=== PATIENT | female | born 1945 | race Hispanic/Latino ===

== ENCOUNTER 2019-03-15 12:20 | Emergency (ER) | payer MEDICARE ==
[~2019-03-15] VITALS: Ht 152.4 cm; Wt 60.8 kg
--- NOTE | 2019-03-15 13:41 | NUR ---
PT ASST TO WC TO CAR AND INTO CAR BY NURSE.
== END 2019-03-15 13:41 | disposition home or self-care (01) ==
LOC: ER 12:20
DX: R53.1 Weakness (principal); Z88.6 Allergy status to analgesic agent; Z88.1 Allergy status to other antibiotic agents; Z88.5 Allergy status to narcotic agent; Z88.2 Allergy status to sulfonamides; Z88.8 Allergy status to other drugs, medicaments and biological substances; I10 Essential (primary) hypertension; E11.9 Type 2 diabetes mellitus without complications; Z86.73 Personal history of transient ischemic attack (TIA), and cerebral infarction without residual deficits
CPT/HCPCS: 99284

== ENCOUNTER 2019-05-05 07:54 | Inpatient (IN) | payer MEDICARE ==
[~2019-05-05] VITALS: Ht 152.4 cm; Wt 40.8 kg
--- NOTE | 2019-05-05 09:23 | Diagnostic Imaging Report ---
Examination: CT head without contrast Clinical Indication: Fall with head injury. Technique: Transaxial noncontrast images from the skull base through the vertex were obtained. Sagittal and coronal reformatted images were done. Dose modulation, iterative reconstruction, and/or weight based adjustment of the mA/kV was utilized to reduce the radiation dose to as low as reasonably achievable. Comparison: None. Findings: Scalp: No abnormalities. Bones: Intact. No fractures. No blastic or lytic lesions. Brain sulci: Appropriate for patient's age. Ventricles: Normal in size and configuration. No hydrocephalus. . Extra-axial space: No abnormalities. Parenchyma: There are patchy areas of low-attenuation within subcortical and periventricular white matter, nonspecific, but could represent microvascular ischemic disease. Chronic lacunar infarcts of the right caudate head and left anterior stephane. No masses, hemorrhage, or acute or chronic cortical based vascular insults. Suprasellar region: No abnormalities. Craniocervical junction: The foramen magnum is patent. No Chiari one malformation. Incidental findings: Atherosclerotic calcification of the cavernous and supraclinoid internal carotid and V4 segments of the bilateral vertebral arteries. Impression: 1. No acute intracranial finding, specifically no hemorrhage. 2. Chronic microvascular ischemic change. 3. Chronic lacunar infarcts, as above. Signed by: Dr. Verona Kennedy M.D. on 05/05/2019 9:19 AM
[2019-05-05] MEDS ORDERED: ACETAMINOPHEN 325 MG TAB PO ONE (09:30)
--- NOTE | 2019-05-05 09:30 | Diagnostic Imaging Report ---
Examination: CT CERVICAL SPINE WO CONTRAST HISTORY:Neck pain and injury after fall. COMPARISON:None. TECHNIQUE: Multidetector helical axial images were obtained without contrast from the foramen magnum to T1. Coronal and sagittal reformatted images were done. Bone and soft tissue windows were evaluated. Dose modulation, iterative reconstruction, and/or weight based adjustment of the mA/kV was utilized to reduce the radiation dose to as low as reasonably achievable. FINDINGS: Alignment:Normal alignment and lordosis. Vertebrae: Normal height and density. No acute fracture, infection or neoplasm. Caliber of spinal canal: Developmentally normal. Posterior fossa and craniocervical junction: Foramen magnum patent. No Chiari 1 malformation. Soft tissues: Atherosclerotic calcification of the carotid arteries. Degenerative changes: Diffuse disc osteophytes from C4-C5 through C6-C7 with mild to moderate canal stenosis at these levels. Visualized lung apices: Moderate to large left pleural effusion. IMPRESSION: 1. No acute abnormalities. 2. Degenerative changes as above. 3. Moderate to large left pleural effusion. Signed by: Dr. Verona Kennedy M.D. on 05/05/2019 9:26 AM
--- NOTE | 2019-05-05 10:03 | Diagnostic Imaging Report ---
EXAM: CT Chest WITHOUT contrast 05/05/2019 8:14 AM INDICATION: Chest pain status post fall. Mid right rib/back pain. COMPARISON: None TECHNIQUE: Chest was scanned utilizing a multidetector helical scanner from the lung apex through the level of the adrenal glands without administration of IV contrast. Absence of intravenous contrast decreases sensitivity for detection of lymphadenopathy and vascular pathology. Coronal and sagittal reformations were obtained. Routine protocol was performed. IV CONTRAST: None RADIATION DOSE: Total DLP: 163.34 mGy*cm Estimated effective dose: (DLP x 0.014 x size factor) mSv COMPLICATIONS: None FINDINGS: LINES/ TUBES: None. Pacemaker leads partially visualized. LUNGS AND AIRWAYS: Bilateral prominence of the pulmonary interstitium diffusely. Regions of hypodensity in the right upper lobe and lingula suggestive of platelike atelectasis. There is also linear atelectasis versus scarring in the right middle lobe. Left lower lobe compressive atelectasis. PLEURA: Moderate to large left, and small right pleural effusions. HEART AND MEDIASTINUM: The thyroid gland is normal. No mediastinal, hilar or axillary lymphadenopathy. The heart is moderately enlarged.. There is no pericardial effusion. There are severe atherosclerotic calcifications in the aorta and coronary arteries. The pulmonary trunk is dilated measuring 3.2 cm in diameter. UPPER ABDOMEN: Limited non-contrast views of the upper abdomen show no abnormality within the visualized liver, spleen, pancreas, or kidneys. The adrenal glands are normal. BONES: There are degenerative changes in the thoracic spine. Median sternotomy wires. SOFT TISSUES: Unremarkable. IMPRESSION: 1. No acute traumatic injury. No displaced rib fracture. 2. Small right and moderate to large volume left pleural effusions associated with left lower lobe compressive atelectasis. 3. Bilateral pulmonary venous congestion and interstitial edema. 4. Severe coronary artery disease. Signed by: Dr. Simi Hummel M.D. on 05/05/2019 10:00 AM
[2019-05-05 10:56] LABS: BASOPHILS # (AUTO) 0.1 (0.0-0.1); BASOPHILS % 0.6 % (0.0-1.0); EOSINOPHILS # (AUTO) 0.1 (0.0-0.4); EOSINOPHILS % 0.8 % (0.0-6.0); HEMATOCRIT 39.8 % (34.2-44.1); HEMOGLOBIN 12.8 g/dL (12.0-16.0); LYMPHOCYTES # (AUTO) 1.4 (1.0-3.2); MEAN CORPUSCULAR HEMOGLOBIN 28.6 pg (28-32); MEAN CORPUSCULAR HGB CONC 32.2 g/dL (31-35); MEAN CORPUSCULAR VOLUME 88.8 fL (81-99); MONOCYTES # (AUTO) 0.5 (0.2-0.8); MONOCYTES % 5.5 % (4.4-11.3); NEUTROPHILS # (AUTO) 6.4 (2.1-6.9); NEUTROPHILS % 75.5 % (38.7-80.0); PLATELET COUNT 220 x10e3/uL (140-360); RED BLOOD COUNT 4.48 x10e6/uL (3.6-5.1); RED CELL DISTRIBUTION WIDTH 20.2 % (11.7-14.4)
[2019-05-05] MEDS ORDERED: DEXTROSE 50% SYRINGE 50 ML IV PRN (11:00)
[2019-05-05 11:02] LABS: CLARITY,URINE CLEAR (CLEAR); COLOR,URINE YELLOW (YELLOW)
[2019-05-05 11:03] LABS: BILIRUBIN,URINE NEGATIVE (NEGATIVE); KETONES,URINE NEGATIVE (NEGATIVE); LEUKOCYTE ESTERASE ,URINE NEGATIVE (NEGATIVE); NITRITE,URINE NEGATIVE (NEGATIVE); PROTEIN,URINE DIPSTICK TRACE (NEGATIVE); URINE UROBILINOGEN 0.2 mg/dL (0.2 - 1)
[2019-05-05 11:05] LABS: INR 1.81; PROTHROMBIN TIME 22.3 seconds (11.9-14.5)
[2019-05-05 11:06] LABS: PARTIAL THROMBOPLASTIN TIME 49.5 seconds (23.8-35.5)
[2019-05-05 11:09] LABS: BACTERIA,URINE RARE /HPF; EPITHELIAL CELLS,URINE FEW /LPF
--- OUTSIDE RECORDS SUMMARY | 2019-05-05 11:09 | XMS REPORT ---
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 Allergies, Adverse Reactions, Alerts This patient has no known allergies or adverse reactions. Medications This patient has no known medications. Results Test Description Test Time Test Comments Text Results Atomic Results Result Comments CT CHEST WO 2019-05-05 09:26:00 [place] [address] Patient Name: ELMO ROBB MR #: [id number] : 1945 Age/Sex: 73/F Req #: [id number] Adm Physician: Ordered by: PAYAM FARRAR MD Report #: [id number] Location: ER Room/Bed: Procedure: [id number] CT/CT CHEST WO Exam Date: 05/05/19 Exam Time: 0844 REPORT STATUS: Signed EXAM: CT Chest WITHOUT contrast 05/05/2019 8:14 AM INDICATION : Chest pain status post fall. Mid right rib/back pain. COMPARISON: None TECHNIQUE: Chest was scanned utilizing a multidetector helical scanner from the lung apex through the level of the adrenal glands without administration of IV contrast. Absence of intravenous contrast decreases sensitivity for detection of lymphadenopathy and vascular pathology. Coronal and sagittal reformations were obtained. Routine protocol was performed. IV CONTRAST: None RADIATION DOSE: Total DLP: 163.34 mGy*cm Estimated effective dose: (DLP x 0.014 x size factor) mSv COMPLICATIONS: None FINDINGS: LINES/ TUBES: None. Pacemaker leads partially visualized. LUNGS AND AIRWAYS: Bilateral prominence of the pulmonary interstitium diffusely. Regions of hypodensity in the right upper lobe and lingula suggestive of platelike atelectasis. There is also linear atelectasis versus scarring in the right middle lobe. Left lower lobe compressive atelectasis. PLEURA: Moderate to large left, and small right pleural effusions. HEART AND MEDIASTINUM: The thyroid gland is normal. No mediastinal, hilar or axillary lymphadenopathy. The heart is moderately enlarged.. There is no pericardial effusion. There are severe atherosclerotic calcifications in the aorta and coronary arteries. The pulmonary trunk is dilated measuring 3.2 cm in diameter. UPPER ABDOMEN: Limited non-contrast views of the upper abdomen show no abnormality within the visualized liver, spleen, pancreas, or kidneys. The adrenal glands are normal. BONES: There are degenerative changes in the thoracic spine. Median sternotomy wires. SOFT TISSUES: Unremarkable. IMPRESSION: 1. No acute traumatic injury. No displaced rib fracture. 2. Small right and moderate to large volume left pleural effusions associated with left lower lobe compressive atelectasis. 3. Bilateral pulmonary venous congestion and interstitial edema. 4. Severe coronary artery disease. Signed by: Dr. Simi Cunningham M.D. on 05/05/2019 10:00 AM Dictated By: ARNALDO CUNNINGHAM MD, MD 1000 Transcribed By: REDD on 05/05/19 1000 COPY TO: PAYAM FARRAR MD CT CERVICAL SPINE WO 2019-05-05 09:19:00 [place] [address] Patient Name: ELMO ROBB MR #: [id number] : 1945 Age/Sex: 73/F Req #: [id number] Adm Physician: Ordered by: PAYAM FARRAR MD Report #: [id number] Location: ER Room/Bed: Procedure: [id number] CT/CT CERVICAL SPINE WO Exam Date: 05/05/19 Exam Time: 08 REPORT STATUS: Signed Examination: CT CERVICAL SPINE WO CONTRAST HISTO RY:Neck pain and injury after fall. COMPARISON:None. TECHNIQUE: Multidetector helical axial images were obtained without contrast from the foramen magnum to T1. Coronal and sagittal reformatted images were done. Bone and soft tissue windows were evaluated. Dose modulation, iterative reconstruction, and/or weight based adjustment of the mA/kV was utilized to reduce the radiation dose to as low as reasonably achievable. FINDINGS: Alignment:Normal alignment and lordosis. Vertebrae: Normal height and density. No acute fracture, infection or neoplasm. Caliber of spinal canal: Developmentally normal. Posterior fossa and craniocervical junction: Foramen magnum patent. No Chiari 1 malformation. Soft tissues: Atherosclerotic calcification of the carotid arteries. Degenerative changes: Diffuse disc osteophytes from C4-C5 through C6-C7 with mild to moderate canal stenosis at these levels. Visualized lung apices: Moderate to large left pleural effusion. IMPRESSION: 1. No acute abnormalities. 2. Degenerative changes as above. 3. Moderate to large left pleural effusion. Signed by: Dr. Verona Kennedy M.D. on 05/05/2019 9:26 AM Dictated By: VERONA DIETZ MD 5 Transcribed By: REDD on 05/05/19925 COPY TO: PAYAM FARRAR MD CT BRAIN WO 2019-05-05 09:14:00 [place] [address] Patient Name: ELMO ROBB MR #: [id number] : 1945 Age/Sex: 73/F Req #: [id number] [facility] Physician: Ordered by: PAYAM FARRAR MD Report #: [id number] Location: Room/Bed: Procedure: [id number] CT/CT BRAIN WO Exam Date: 05/05/19 Exam Time: 0844 REPORT STATUS: Signed Examination: CT head without contrast Clinical Indication: F all with head injury. Technique: Transaxial noncontrast images from the skull base through the vertex were obtained. Sagittal and coronal reformatted images were done. Dose modulation, iterative reconstruction, and/or weight based adjustment of the mA/kV was utilized to reduce the radiation dose to as low as reasonably achievable. Comparison: None. Findings: Scalp: No abnormalities. Bones: Intact. No fractures. No blastic or lytic lesions. Brain sulci: Appropriate for patient's age. Ventricles: Normal in size and configuration. No hydrocephalus. . Extra-axial space: No abnormalities. Parenchyma: There are patchy areas of low-attenuation within subcortical and periventricular white matter, nonspecific, but could represent microvascular ischemic disease. Chronic lacunar infarcts of the right caudate head and left anterior stephane. No masses, hemorrhage, or acute or chronic cortical based vascular insults. Suprasellar region: No abnormal ities. Craniocervical junction: The foramen magnum is patent. No Chiari one malformation. Incidental findings: Atherosclerotic calcification of the cavernous and supraclinoid internal carotid and V4 segments of the bilateral vertebral arteries. Impression: 1. No acute intracranial finding, specifically no hemorrhage. 2. Chronic microvascular ischemic change. 3. Chronic lacunar infarcts, as above. Signed by: Dr. Verona Kennedy M.D. on 05/05/2019 9:19 AM Dictated By: VERONA DIETZ MD 8 Transcribed By: REDD on 05/05/1919 COPY TO: PAYAM FARRAR MD
[2019-05-05] MEDS ORDERED: POTASSIUM CHLO10 ME1 PO (11:11)
[2019-05-05] MEDS ORDERED: MEXILETINE HCL150 MG PO (11:11)
[2019-05-05] MEDS ORDERED: ASPIR 8181 MG PEG (11:11)
[2019-05-05] MEDS ORDERED: ELIQUIS2.5 MG PO (11:11)
[2019-05-05] MEDS ORDERED: ONDANSETRON ODT8 MG PO (11:11)
[2019-05-05] MEDS ORDERED: LEVOTHYROXINE50 MCG PO (11:11)
[2019-05-05] MEDS ORDERED: BUMETANIDE1 MG PO (11:11)
[2019-05-05] MEDS ORDERED: TOUJEO SOL300 UNIT/1 SQ (11:11)
[2019-05-05] MEDS ORDERED: DIGOXIN125 MCG PO (11:11)
[2019-05-05] MEDS ORDERED: GLIPIZIDE5 MG PO (11:11)
[2019-05-05] MEDS ORDERED: ATORVASTATIN CA20 MG PO (11:11)
[2019-05-05 11:13] LABS: ALBUMIN/GLOBULIN RATIO 0.7 (0.8-2.0); ANION GAP 13.1 mmol/L (8-16); CREATININE, SERUM 1.29 mg/dL (0.57-1.11); MAGNESIUM 1.4 MG/DL (1.3-2.1); POTASSIUM 4.1 mmol/L (3.5-5.1)
[2019-05-05 11:19] LABS: CREATINE KINASE MB 10.3 ng/mL (0-5.0)
[2019-05-05] MEDS ORDERED: DEXTROSE 50% SYRINGE 50 ML IV STA (11:21)
[2019-05-05] MEDS ORDERED: DEXTROSE 5% 1,000 ML IV ONE (11:30)
[2019-05-05] MEDS: OCTREOTIDE ACETATE 0.05 MG/ML AMP SQ SCH ×3 (12:00→17:08)
[2019-05-05] MEDS: INSULIN LISPRO 100 UNIT/1 ML 3ML VIAL SQ SCH ×3 (12:12→21:00)
--- NOTE | 2019-05-05 12:45 | History and Physical ---
CHIEF COMPLAINT: Worsening shortness of breath. HISTORY OF PRESENT ILLNESS: A 73-year-old woman, who presents to [facility] with worsening of her chronic dyspnea. According to her adult daughter, the patient has been chronically dyspneic since December of 2018 when she was discharged from the hospital in the [place], [place] area. Over the past 2 weeks, the patient's shortness of breath has worsened. The adult daughter states the patient has not had any fever, chills, or purulent sputum production. In the emergency room, the patient was found to have B-type natriuretic peptide level of 2650. The patient's BUN and creatinine were 38 and 1.29 respectively. Potassium was 4.1. Serum glucose was 58 mg/dL. White blood cell count 8400 with 75% segmented neutrophils. Hemoglobin was 12.8 g/dL. Urinalysis revealed 11-20 white blood cells and 11-20 red blood cells per high-power field. The patient underwent a CT of the chest in the emergency room that did not reveal any obvious evidence of rib fracture, but did reveal small right and moderate to large left pleural effusions. CT of the chest also revealed bilateral pulmonary venous congestion, interstitial edema as well as severe coronary artery disease. The patient was admitted for further evaluation and treatment. REVIEW OF SYSTEMS: GENERAL: Weight has been stable. No fever or chills. HEENT: No headaches. No visual changes. CARDIOVASCULAR/RESPIRATORY: No cough. GI: No nausea, vomiting, diarrhea, or constipation. : No UTI symptoms. NEUROMUSCULAR: Complains of swelling in the legs over the last few weeks. ALLERGIES: 1. KEFLEX. 2. CIPROFLOXACIN. 3. HYDROCODONE. 4. METRONIDAZOLE. 5. SULFAMETHOXAZOLE. 6. TRAMADOL. 7. TRIMETHOPRIM. HOME MEDICATIONS: 1. Apixaban 2.5 mg b.i.d. 2. Aspirin 81 mg daily. 3. Atorvastatin 40 mg at bedtime. 4. Bumex 2 mg b.i.d. 5. Digoxin 125 mcg daily. 6. Glipizide 2.5 mg daily. 7. Glargine insulin 10 units subcu daily. 8. Levothyroxine 25 mcg daily. 9. Mexiletine 150 mg b.i.d. 10. Ondansetron 4 mg by mouth daily for nausea and vomiting. 11. Potassium chloride 20 mEq b.i.d. PAST SURGICAL HISTORY: 1. Coronary artery bypass grafting in 2012. 2. Pacemaker defibrillator placement. 3. Left lower extremity angioplasty. 4. Right lower extremity angioplasty. FAMILY HISTORY: Multiple family members with coronary artery disease. SOCIAL HISTORY: This woman is a , lives with adult daughter. She recently relocated from the [facility]. No history of tobacco or alcohol use. PAST MEDICAL HISTORY: 1. Coronary artery disease (history of coronary artery bypass grafting in 2011). 2. Chronic systolic/diastolic congestive heart failure. 3. Type 2 diabetes mellitus. 4. Hyperlipidemia. 5. Hypothyroidism. PHYSICAL EXAMINATION: GENERAL: She is awake and alert. She is obviously dyspneic. It is difficult for her to provide an accurate history. VITAL SIGNS: Height 5 feet 0 inches, weight 134 pounds, BMI 26. Blood pressure 106/76, pulse 72, respiratory rate 18, oxygen saturation 100% on room air, and temperature 97.8. INTEGUMENT: Skin is warm and dry. No pallor, jaundice, or diaphoresis. HEENT: Anterior sclerae with moist mucous membranes. NECK: Supple. The patient has evidence of jugular venous distention. CARDIOVASCULAR: Distant heart sounds. Regular rate and rhythm with S3 gallop. LUNGS: Diminished breath sounds at the bases. ABDOMEN: Benign. EXTREMITIES: The patient has 1 to 2+ edema in the bilateral lower legs. NEUROLOGIC: Intact. DIAGNOSES: 1. Acute on chronic systolic/diastolic congestive heart failure. 2. Iatrogenic hypoglycemia. 3. Coronary artery disease (history of coronary artery bypass grafting in 2011). 4. Peripheral artery disease. 5. Stage 3 chronic kidney disease. 6. Urinary tract infection, likely. PLAN: 1. Rule out myocardial infarction. 2. Intravenous furosemide. 3. Order 2D echocardiogram. 4. Consult Cardiology. 5. Follow renal function. 6. We will hold glipizide and insulin because of the patient's hypoglycemia. I spent an hour in the care of this patient. MD PAULA Lamb/THERON /[id number] CJ
[2019-05-05] MEDS ORDERED: METOLAZONE 5 MG TAB PO ONE (13:00)
--- NOTE | 2019-05-05 13:00 | NUR ---
Received patient from ER unit by stretcher. Oriented to person. 2 L/min O2 placed via NC. Reoriented to place and time. Oriented to call light and instructed to call nurse for assistance. Bed alarm on, alternating pressure mattress applied, bed locked and in low position. Resting in bed.
[2019-05-05 13:20] VITALS: BP 93/68
[2019-05-05 13:24] VITALS: BP 93/68
[2019-05-05 13:50] VITALS: BP 93/68
--- NOTE | 2019-05-05 14:51 | Consultation ---
DATE OF CONSULTATION: 05/05/2019 Cardiology Consultation REASON FOR CONSULTATION: CHF. HISTORY OF PRESENT ILLNESS: Ms. Jose is a 73-year-old lady with history of hypertension; hypercholesteremia; type 2 diabetes; severe ischemic cardiomyopathy; CHF; systolic EF less than 20%; CAD with CABG in 2011; paroxysmal atrial fibrillation, on anticoagulant therapy, has a primary prevention ICD; and peripheral vascular disease with prior history of multiple peripheral vascular operations done by an IRP. The patient is not active at all. She was previously living in [facility], now moved to the [facility] to live with daughter. She denies any chest pain or discomfort, however, again she is not active, wheelchair-bound. She reports two pillow use and intermittent PND, but does have chronic severe lower extremity swelling. Normally, she is maintained on digoxin and Bumex therapy. She is a utilizing a wheelchair to ambulate, and consequently was at home, reached over for a blanket and ended up slipping and falling and hitting her herself. She came to the emergency room for predominantly evaluation of the fall and brain CT was done showing no acute intracranial findings, but there are chronic microvascular ischemic changes and old lacunar infarcts. CT of the cervical spine shows degenerative changes and [id number] left pleural effusion. She was predominantly hospitalized for heart failure management due to the presence of pulmonary venous congestion and interstitial edema with the lower extremity effusion. PAST MEDICAL HISTORY: 1. Hypertension. 2. Type 2 diabetes. 3. Hypercholesteremia. 4. CAD with prior history of CABG. 5. Systolic CHF. 6. ICD in 2013 with a generator change out in January of 2019. 7. Peripheral vascular disease, procedures done with [facility]. 8. Prior history of stroke. 9. Hypothyroidism. PAST SURGICAL HISTORY: 1. Hysterectomy in 2004. 2. CABG in 2011. 3. ICD in 2013. 4. ICD change out in January 2019. 5. Peripheral vascular intervention in 2019 at [facility]. FAMILY HISTORY: Mother at 72 with a heart attack. Father at 74 with a heart attack. One sister of a heart attack at the age of 53. One brother at age of 49 with a heart attack. SOCIAL HISTORY: She is . She is a lifelong nonsmoker. Denies any alcohol or illicit drug use. ALLERGIES: MULTIPLE, INCLUDING HYDROCODONE, METRONIDAZOLE, TRAMADOL, TYLENOL, CIPRO. HOME MEDICATIONS: Include: 1. Aspirin 81 mg daily. 2. Eliquis 2.5 mg b.i.d. 3. Atorvastatin 40 mg daily. 4. Digoxin 0.125 mg daily. 5. Potassium 20 mEq daily. 6. Bumex 1mg b.i.d. 7. Glipizide 2.5 mg daily. 8. Synthroid 25 mcg daily. 9. Cyclobenzaprine 10 mg at bedtime. 10. Mexiletine 150 mg b.i.d. 11. Toujeo SoloStar subcu as needed. REVIEW OF SYSTEMS: GENERAL: Poor general state of health. No fevers, chills, or weight changes. HEENT: No headaches, visual complaints, sore throat, or stuffy nose. RESPIRATORY: Denies any pleuritic chest pain. Has occasional wheezing and shortness of breath and nonproductive cough. CARDIOVASCULAR: As per HPI. GI: Denies any abdominal pain, bright red blood per rectum, melena, or hematemesis. HEMATOLOGIC: Positive for easy bruising, no bleeding. : No urinary frequency, incontinence, or hematuria. MUSCULOSKELETAL: Positive for leg swelling and heaviness feeling in her legs that is chronic. SKIN: No rashes. NEUROLOGIC: Poor coordination, utilizes walking aid for ambulation, utilizes a wheelchair a lot. PSYCH: Normal mood, no anxiety, no depression. PHYSICAL EXAMINATION: VITAL SIGNS: Height of 60 inches, weight of 134 pounds, BMI is 26.2. Blood pressure is 106/75, pulse 71, respiratory rate 20, O2 saturation 100% on room air. GENERAL: This is a well-nourished, well-developed lady, is currently in no apparent distress, but chronically ill-appearing lady. HEENT: Normocephalic, atraumatic. Pupils are equal, round, and reactive to light. Extraocular movements are intact. Oropharynx is clear. NECK: JVD to the angle of mandible. No carotid bruits. CARDIOVASCULAR: Regular rate and rhythm. Normal S1, S2. A 2/6 systolic murmur at the left lower sternal border. There is an old midline sternotomy scar. LUNGS: Showed decreased left basilar breath sounds fpc up the lung paulino. ABDOMEN: Soft, nontender, nondistended. Normoactive bowel sounds. No hepatosplenomegaly. BACK: No costovertebral angle tenderness. EXTREMITIES: Warm with 2 to 3+ edema to the mid thighs bilaterally. NEUROLOGIC: She is alert and oriented. Abnormal gait and symmetric seemingly with 5-/5strength in all four extremities. PSYCH: Normal, fluent speech. Appropriate affect. No anxiety or delusions. LABORATORY DATA: White count of 8.4, hemoglobin 12.8, hematocrit 39.8, platelets of 220. Sodium 139, potassium 4.1, chloride 105, bicarb 25, BUN 38, creatinine 1.3, glucose of 58, and calcium 9.0. AST 33, ALT 37, alkaline phosphatase 213, total protein of 7.1, and albumin of 3.0. BNP is 2651. INR is 1.81. UA shows 11-20 white cells. IMAGING STUDIES: As noted above, EKG reveals atrial paced rhythm and nonspecific intraventricular conduction block with no ST-T wave changes. DIAGNOSES: 1. Status post fall, mechanical in nature. 2. Congestive heart failure, systolic, advanced ischemic cardiomyopathy, EF 20% with [id number] decompensated systolic and diastolic heart failure. 3. Hypertension. 4. Hypercholesteremia. 5. Advanced coronary artery disease/coronary artery bypass graft. 6. Peripheral arterial disease. PLAN/RECOMMENDATIONS: 1. From a cardiovascular standpoint, she sustained no significant damage injury related to her fall, thankfully is on systemic anticoagulant therapy for paroxysmal atrial fibrillation. We will recommend continuing as this lady is a high risk for thromboembolic events. 2. We will recommend continuing heart failure regimen including digoxin, but of note is not on beta blockers secondary to resting heart rate in less than 60s. 3. We will increase her diuretic therapy to metolazone/IV Lasix. 4. Aggressive risk factor modification medical therapy. 5. We will continue to follow this patient while she is here. 6. In light of current events with advanced COVID cases, it would be reasonable to manage some of these as an outpatient, should the primary team decide and family/patient decide too. MD MICHAEL Arellano/THERON /[id number] CJ
--- NOTE | 2019-05-05 14:59 | Diagnostic Imaging Report ---
EXAMINATION: CHEST XRAY LINE PLACEMENT INDICATION: Status post PICC placement COMPARISON: None. CT chest dated 05/05/2019. FINDINGS: Dual-lead left-sided pacemaker. TUBES and LINES: Right upper extremity PICC with distal tip projected on the LUNGS: There is prominence of the central pulmonary vasculature, consistent with pulmonary venous congestion. Increased density in the lower left thorax suggestive of atelectasis versus consolidation. PLEURA: Small right and moderate left pleural effusion. No pneumothorax. Trace fluid within the minor fissure. HEART AND MEDIASTINUM: Cardiac size is mildly to moderately enlarged. BONES AND SOFT TISSUES: No acute osseous lesion. Soft tissues are unremarkable. UPPER ABDOMEN: No free air under the diaphragm. IMPRESSION: Findings suggestive of decompensated CHF with bilateral pulmonary venous congestion. Right upper extremity PICC with distal tip at the cavoatrial junction. Signed by: Dr. Simi Hummel M.D. on 05/05/2019 2:56 PM
--- NOTE | 2019-05-05 15:09 | NUR ---
FSBG 68. [place] juice given. Will continue to monitor.
--- NOTE | 2019-05-05 15:54 | NUR ---
FSBG 112.
--- NOTE | 2019-05-05 16:11 | NUR ---
Notified of PICC placement xray results. See orders.
[2019-05-05 16:38] VITALS: BP 107/59
[2019-05-05] MEDS ORDERED: HOME MEDICATION--PATIENTS OWN PO SCH (17:00)
[2019-05-05] MEDS: MEXILETINE HCL 150 MG PO SCH (17:00)
[2019-05-05] MEDS: FUROSEMIDE INJ 10 MG/ML 4 ML VIAL IV SCH ×2 (17:16→22:00)
[2019-05-05] MEDS: APIXAB 2.5 MG TABLET PO SCH (17:22)
[2019-05-05] MEDS: POTASSIUM CHLORIDE 10MEQ EA PO SCH (17:23)
--- NOTE | 2019-05-05 18:55 | NUR ---
Bedside report given to morning nurse. Pt alert and orient to name, lying in bed HOB 60 degrees. Denies pain at this time. Call light within reach. Bed low and locked.
[2019-05-05 19:10] VITALS: BP 123/73
--- NOTE | 2019-05-05 19:30 | NUR ---
Report given to oncoming nurse. AAOx2. Bed alarm on, bed in locked and low position, possessions and call light with reach. Resting in bed.
[2019-05-05 19:57] LABS: CREATINE KINASE MB 9.9 ng/mL (0-5.0)
[2019-05-05] MEDS: ATORVASTATIN 40 MG TAB PO SCH (21:00)
[2019-05-05 22:27] VITALS: BP 123/73
[2019-05-06] VITALS (8 sets, daily range): BP systolic 119–181; BP diastolic 57–71
[2019-05-06 05:09] LABS: BASOPHILS # (AUTO) 0.1 (0.0-0.1); BASOPHILS % 0.7 % (0.0-1.0); EOSINOPHILS # (AUTO) 0.1 (0.0-0.4); EOSINOPHILS % 1.7 % (0.0-6.0); HEMOGLOBIN 11.8 g/dL (12.0-16.0); LYMPHOCYTES # (AUTO) 1.2 (1.0-3.2); LYMPHOCYTES % 17.3 % (18.0-39.1); MEAN CORPUSCULAR HEMOGLOBIN 28.3 pg (28-32); MEAN CORPUSCULAR HGB CONC 31.9 g/dL (31-35); MEAN CORPUSCULAR VOLUME 88.7 fL (81-99); MONOCYTES # (AUTO) 0.4 (0.2-0.8); NEUTROPHILS # (AUTO) 5.3 (2.1-6.9); PLATELET COUNT 214 x10e3/uL (140-360); RED BLOOD COUNT 4.17 x10e6/uL (3.6-5.1); RED CELL DISTRIBUTION WIDTH 20.2 % (11.7-14.4)
[2019-05-06 05:39] LABS: ALBUMIN 2.6 g/dL (3.5-5.0); ALBUMIN/GLOBULIN RATIO 0.7 (0.8-2.0); ANION GAP 12.6 mmol/L (8-16); CALCIUM 8.8 mg/dL (8.4-10.2); CHOL/HDL RATIO 6.2 (3.0-3.6); CREATININE, SERUM 1.33 mg/dL (0.57-1.11); POTASSIUM 3.6 mmol/L (3.5-5.1)
[2019-05-06] MEDS: FUROSEMIDE INJ 10 MG/ML 4 ML VIAL IV SCH ×2 (06:00→17:00)
[2019-05-06] MEDS: OCTREOTIDE ACETATE 0.05 MG/ML AMP SQ SCH ×4 (06:00→17:36)
[2019-05-06] MEDS: LEVOTHYROXINE SODIUM 25 MCG TABLET PO SCH (06:00)
[2019-05-06 06:04] LABS: CREATINE KINASE MB 8.1 ng/mL (0-5.0)
--- NOTE | 2019-05-06 06:30 | NUR ---
Pt lying in bed without distress. Call light within reach.
--- NOTE | 2019-05-06 07:00 | NUR ---
RCD PT AT BED PT IS ALERT AND ORIENTED IV PATENT BED LOW AND LOCKED CALL LIGHT IN REACH
[2019-05-06] MEDS: INSULIN LISPRO 100 UNIT/1 ML 3ML VIAL SQ SCH ×3 (07:30→16:30)
[2019-05-06] MEDS: MEXILETINE HCL 150 MG PO SCH ×2 (09:00→17:00)
[2019-05-06] MEDS: ASPIRIN 81 MG CHEW TAB PEG SCH (09:00)
[2019-05-06] MEDS ORDERED: ASPIRIN 81 MG ENTERIC COATED PO SCH (09:00)
[2019-05-06] MEDS: APIXAB 2.5 MG TABLET PO SCH ×2 (09:00→17:00)
[2019-05-06] MEDS: DIGOXIN 0.125 MG TAB PO SCH (09:00)
[2019-05-06] MEDS: POTASSIUM CHLORIDE 10MEQ EA PO SCH ×2 (09:00→17:00)
--- NOTE | 2019-05-06 09:21 | NUR ---
Nutrition Intervention Note RD Recommendation(s) for Physician: -Continue current diet per MD,. -Recommend Glucerna supplement BID. -Recommend to re-weigh the pt to ensure the correct weight is recorded with meditech. Plan of Care: RD following, monitoring for tolerance and adequacy. Glucerna BID. Nutrition reason for involvement: (Nutrition Risk Trigger-MST 2, possible wound ) RD Assessment 05/05: 73 YOF admitted for pleural effusion with PMH listed below. The pt was seen resting in bed, no family at bedside. She was able to state her appetite has been poor for a long time (could not state specific time). Recommend ONS to help the pt meet her nutritional needs. Pt is on IV lasix. Pt was here in Mar 2019, where the pt was 134 lbs suggesting the pt had a 33% weight loss within a month, weight loss appears excessive even for with fluid loss, recommend to re-weigh the pt to ensure the correct weight is recorded with meditech. Possible wound recorded in EMR as well, per MD note pt had a fall at home. Will continue to monitor. Principal Problems/Diagnoses: Pleural Effusion, CHF PMH: 1. Hypertension. 2. Type 2 diabetes. 3. Hypercholesteremia. 4. CAD with prior history of CABG. 5. Systolic CHF. 6. ICD in 2013 with a generator change out in January of 2019. 7. Peripheral vascular disease, procedures done with NIRP. 8. Prior history of stroke. 9. Hypothyroidism. GI: LBM: 05/03 Skin: per EMR, right heel wound Labs: 05/05: BUN 36, Creat 1.33, POC GM: 154, B-gretel pepetice 2259.3 Meds: KCL, insulin, lasix, synthroid, Lipitor, Ht:60 in Wt:90 lbs BMI:17.6 kg/m^2 IBW:100 lbs Malnutrition Evaluation (05/05) -unable to evaluate Energy intake: <75% of estimated energy requirements for >3 months Weight loss: -weights in EMR appear to be inaccurate Fat loss: Mild, Muscle loss: Moderate Nutrition Prescription (Diet Order): ADA 1800 diet Estimated Nutritional Needs: Calories: 1230-1435kcal/day (30-35 kcal/kg/day) Weight used : CBW Protein : 62-82protein/day (1.5-2 gram/kg/day ) Weight used: CBW Diet Adequacy: Not meeting calorie needs, Not meeting protein needs Diet Education Needs Assessment: Diet education indicated, but patient not appropriate for education at this time. Nutrition Care Level: mod Nutrition Diagnosis: Inadequate energy intake related to medical condition as evidenced by the pt reporting a poor appetite and need for ONS. Goal: Patient will meet 75-100% of estimated needs by follow up Progress: (N/A) Interventions: -( carb modified diet, Commercial beverage, Prescription medications, Collaboration with other providers Monitoring/Evaluation: -(Total energy intake, Total protein intake, Prescription medication, Modified diet, Liquid supplement, Weight change) Signed: Jocelyne Ferro RD, LD
--- NOTE | 2019-05-06 09:49 | Progress Note ---
DATE: 05/06/2019 SUBJECTIVE: Ms. Jose is a 73-year-old female with history of diabetes, hypertension, hyperlipidemia, CVA, ischemic cardiomyopathy, systolic CHF with ejection fraction of 20%, coronary artery disease, status post CABG, paroxysmal atrial fibrillation on anticoagulation, peripheral vascular disease, who is not a wheelchair bound. She came to the emergency room after falling from the wheelchair. Workup has been negative. She was found to have some shortness of breath and congestion, so she was started on IV Lasix. Cardiology is following the patient with us. PHYSICAL EXAMINATION: GENERAL: Today, she is awake and alert. She is feeling a little better. HEART: Regularly regular. LUNGS: Poor inspiratory effort. ABDOMEN: Distended and soft. LABORATORY WORK: White count 7.16, hemoglobin 11.8, hematocrit 37, glucose 154, potassium 3.6. Creatinine is 1.33. Blood cultures and urine cultures are pending. Chest CT on admission shows no acute traumatic injury, small right and moderate large volume left pleural effusion. Bilateral pulmonary venous congestion. Severe coronary artery disease. Cervical spine CT, no acute abnormalities. Degenerative changes. Head CT, no acute intracranial findings and some chronic lacunar infarct. ASSESSMENT: 1. Acute on chronic systolic congestive heart failure with ejection fraction of 20%. 2. Diabetes type 2 with hypoglycemia. 3. Status post a fall. 4. Hypertension. 5. Hyperlipidemia. 6. Coronary artery disease, status post CABG. 7. Peripheral artery disease. PLAN: Plan at present time is to continue IV Lasix. Grab Jack Worker is following the patient with me and going to get a consult with Pulmonary for the pleural effusion. The patient is on digoxin. Beta-blockers were held due to low heart rate. Continue anticoagulation due to this patient has a high risk of thromboembolic event. All this was discussed with the patient. All questions were answered to satisfaction. MD AVTAR Ramos/THERON /[id number]
--- NOTE | 2019-05-06 10:10 | NUR ---
Pt sleeping soundly and no family present. ANDRAE GALLAGHER Software Security Consultant Spiritual Care Department O: [phone]
[2019-05-06] MEDS ORDERED: FUROSEMIDE INJ 10 MG/ML 4 ML VIAL IV ONE (10:50)
--- NOTE | 2019-05-06 12:53 | NUR ---
WOUND CARE CONSULT FOR 73 YO FEMALE HX OF CHF PLURAL EFFUSION SURJIT 15 ON MODERATE PUP STATUS AND INTERVENTIONS AND ALTERNATING PRESSURE MATTRESS LABS: WBC-7.16 HGB_ 11.8 GLUCOSE-117 SKIN ASSESSMENT COMPLETE PATIENT PRESENTS WITH RIGHT DORSAL FOOT UNGRADABLE WOUND MEASURES 1CM X1.54CM X 100% YELLOW SOFT SLOUGH RECOMMENDATIONS: NURSING TO CONTINUE TO MAINTAIN MODERATE PUP STATUS AND INTERVENTIONS AND ALTERNATING PRESSURE MATTRESS NURSING TO CONTINUE TO ASSIST PATIENT OUT OF BED FOR MEALS AND MUCH TOLERATED NURSING TO CONTINUE TO ASSIST PATIENT NEEDED WITH MEALS AND NUTRITIONAL SUPPLEMENTS TO ENSURE PROPER REQUIREMENTS FOR HEALING NURSING TO CONTINUE TO OFFLOAD FEET AND HEELS NEEDED WITH PILLOW SUSPENSION WHEN IN BED NURSING TO CLEAN_RIGHT DORSAL FOOT UNGRADABLE WOUND WITH NORMAL SALINE DAILY AND APPLY SANTYL OINTMENT AND ALLEVYN FOAM DRESSING NURSING TO CLEAN LEFT HEEL UNGRADABLE WOUND WITH NORMAL SALINE DAILY AND APPLY SANTYL OINTMENT AND ALLEVYN FOAM DRESSING
[2019-05-06] MEDS: COLLAGENASE 5 GM TUBE TOP SCH (15:00)
--- NOTE | 2019-05-06 18:40 | NUR ---
PT RESTING ON BED BED SIDE REPORT GIVEN TO ONCOMING NURSE
--- NOTE | 2019-05-06 19:41 | Consultation ---
DATE OF CONSULTATION: Pulmonary Consultation REASON FOR CONSULT: Shortness of breath. HISTORY OF PRESENT ILLNESS: Ms. Jose is a 73-year-old female, who was admitted with shortness of breath. The patient reports that the shortness of breath progressively getting worse. She has been short of breath since 2019. Today, her shortness of breath got worse over past 2 weeks, so she decided to come to the emergency room over the weekend. She denies any cough, fever, or chills. Her BNP was 2650 when she came in. She had an echocardiogram done which showed ejection fraction of 20%, suggestive of congestive heart failure. The patient had history of coronary artery disease. She had ICD placed in 2013, history of CABG in 2011. REVIEW OF SYSTEMS: GENERAL: Denies any fever or chills. HEAD: Denies any head trauma. ENT: Denies any earache. CVS: Denies any chest pain. RESPIRATORY: Shortness of breath. The rest of the review of systems are negative except as in HPI. PAST MEDICAL HISTORY: Hypertension, type 2 diabetes, hypercholesterolemia, coronary artery disease, history of CABG, and chronic systolic heart failure. PAST SURGICAL HISTORY: Hysterectomy, CABG in 2011, and ICD in 2013. FAMILY AND SOCIAL HISTORY: She does not smoke. Does not drink. She is . Mother at the age of 72 with a heart attack. PHYSICAL EXAMINATION: VITAL SIGNS: Temperature 99.4, pulse of 73, blood pressure 123/67, respiratory rate of 18, and O2 saturation 100% on 2 L. HEENT: Head is atraumatic and normocephalic. NECK: Supple. CHEST: Decreased air entry bilaterally. HEART: S1 and S2 audible. ABDOMEN: Soft. EXTREMITIES: Trace pedal edema. NEUROLOGIC: Awake and alert. LABORATORY DATA: Reviewed. ASSESSMENT/PLAN: A 73-year-old female with heart failure and pleural effusion. The pleural effusion on the left side is larger. I have reviewed the films. PLAN: Thoracentesis and follow the fluid analysis. I will hold the apixaban for thoracentesis. Continue diuretics per Nephrology recommendation. Thank you for this consult. MD JON Colon/MODTim /[id number]
--- NOTE | 2019-05-06 19:50 | NUR ---
RECEIVED PT IN BED AOX1 .RESPIRATIONS ARE EVEN AND UNLABORED WOUND TO THE BOTH HEEL .TELE PACING .RT UPPER ARM PICC LINE .DR BELTRAN HAS SEEN THE PT AND PUT THE ORDER FOR THORACENTESIS .CALL LIGHT WITH IN REACH .CONTINUE TO MONITOR
--- NOTE | 2019-05-06 20:02 | NUR ---
PT BACK AFTER PROCEDURE PT IS ALERT AND ORIENTED NO SIGNS OF ANY BLEEDING ON RT GROIN AND LEFT WRIST SMALL HEMATOMA NOTED ON THE RIGHT WRIST VITALS CHECKED BED LOW AND LOCKED CALL LIGHT IN REACH Addendum: 05/07/19 at 0648 by Kati Schmidt RN WRONG PT
[2019-05-06] MEDS: ATORVASTATIN 40 MG TAB PO SCH (21:53)
[2019-05-07] VITALS (8 sets, daily range): BP systolic 100–121; BP diastolic 51–74
[2019-05-07 06:24] LABS: ALBUMIN 2.6 g/dL (3.5-5.0); ALBUMIN/GLOBULIN RATIO 0.8 (0.8-2.0); CALCIUM 8.4 mg/dL (8.4-10.2); CREATININE, SERUM 1.27 mg/dL (0.57-1.11)
[2019-05-07] MEDS: LEVOTHYROXINE SODIUM 25 MCG TABLET PO SCH (06:28)
[2019-05-07] MEDS: OCTREOTIDE ACETATE 0.05 MG/ML AMP SQ SCH ×4 (06:28→15:52)
--- NOTE | 2019-05-07 06:48 | NUR ---
PT RESTED DURING THE NIGHT ,DENIES PAIN PT IS NPO FOR THORACENTESIS .CALL LIGHT WITH IN REACH .CONTINUE TO MONITOR
--- NOTE | 2019-05-07 07:14 | NUR ---
BEDSIDE REPORT GIVEN TO THE ONCOMING NURSE
[2019-05-07] MEDS: INSULIN LISPRO 100 UNIT/1 ML 3ML VIAL SQ SCH ×4 (07:30→21:00)
[2019-05-07] MEDS: ASPIRIN 81 MG CHEW TAB PEG SCH (09:00)
--- NOTE | 2019-05-07 09:04 | Progress Note ---
DATE: 05/07/2019 SUBJECTIVE: Ms. Jose is a 73-year-old female with history of diabetes; hypertension; hyperlipidemia; CVA; ischemic cardiomyopathy, systolic CHF with ejection fraction of 20%; coronary artery disease, status post CABG; paroxysmal atrial fibrillation; peripheral vascular disease; wheelchair bound; oxygen dependent; who came to the emergency room after falling from the wheelchair. She also was short of breath. She was found to have a large pleural effusion. Pulmonary consult was requested and she is going to go for thoracentesis and awaiting to stop anticoagulation so she can go for the that, continue IV Lasix. PHYSICAL EXAMINATION: GENERAL: Today, she is awake and alert. She is feeling a little better. She is still short of breath. VITAL SIGNS: Temperature is 98, blood pressure 111/65. HEART: Regularly irregular. LUNGS: Poor inspiratory effort. Decreased breath sounds bilaterally. ABDOMEN: Distended and soft. LABORATORY DATA: On the blood work; white count 7.16, hemoglobin is 11.8, hematocrit is 37. Potassium 3.0, we are going to replace; creatinine is 1.27; glucose 116. Urine culture is showing E coli. ASSESSMENT AND PLAN: 1. Lfmfs-io-evazfsb systolic congestive heart failure with ejection fraction of 20%. 2. Diabetes type 2 with hypoglycemia status. 3. Status post fall. 4. Urinary tract infection with Escherichia coli. 5. Hypertension. 6. Hyperlipidemia. 7. Coronary artery disease, status post coronary artery bypass grafting. 8. Peripheral vascular disease. 9. Large pleural effusion. PLAN: At the present time is to continue IV Lasix. We are going to put her on antibiotics. Hold anticoagulation for thoracentesis. All this was discussed in extension with the patient. All questions were answered to satisfaction. MD AVTAR Ramos/MODL /[id number]
[2019-05-07] MEDS: FUROSEMIDE INJ 10 MG/ML 4 ML VIAL IV SCH ×2 (09:15→15:52)
[2019-05-07] MEDS: MEXILETINE HCL 150 MG PO SCH ×2 (09:16→15:52)
[2019-05-07] MEDS: POTASSIUM CHLORIDE 10MEQ EA PO SCH ×2 (09:17→15:52)
[2019-05-07] MEDS: DIGOXIN 0.125 MG TAB PO SCH (09:17)
[2019-05-07] MEDS: NITROFURANTOIN MACROCRYSTALS 100 MG CAP PO SCH ×2 (09:19→21:13)
[2019-05-07] MEDS: COLLAGENASE 5 GM TUBE TOP SCH (09:19)
[2019-05-07] MEDS: CARVEDILOL 3.125 MG TAB PO SCH (15:52)
--- NOTE | 2019-05-07 17:25 | NUR ---
Patient was due to have thoracentesis today, however he received Plavix yesterday and they have requested it be held another day. Patient will be NPO after midnight. Patient's wound care was completed today per orders. Patient is AOx2, VS WNL, has no other issues or complaints.
--- NOTE | 2019-05-07 19:39 | NUR ---
RECEIVED PT IN BED AOX1 .RESPIRATIONS ARE EVEN AND UNLABORED .THORACENTESIS IS NOT DONE TODAY AND SCHEDULED TO DO TOMORROW .DENIES PAIN CALL LIGHT WITH IN REACH .CONTINUE TO MONITOR
[2019-05-07] MEDS: ATORVASTATIN 40 MG TAB PO SCH (21:12)
[2019-05-08] VITALS (13 sets, daily range): BP systolic 84–100; BP diastolic 52–61
[2019-05-08] MEDS: LEVOTHYROXINE SODIUM 25 MCG TABLET PO SCH (05:16)
--- NOTE | 2019-05-08 05:21 | NUR ---
PT RESTED DURING THE NIGHT AND DENIES PAIN .PT REFUSED SANDOSTATIN INJECTION NPO FOR THORACENTESIS .CALL LIGHT WITH IN REACH CONTINUE TO MONITOR
[2019-05-08 05:57] LABS: CALCIUM 8.3 mg/dL (8.4-10.2); CREATININE, SERUM 1.29 mg/dL (0.57-1.11)
[2019-05-08] MEDS: OCTREOTIDE ACETATE 0.05 MG/ML AMP SQ SCH ×5 (06:00→23:38)
[2019-05-08] MEDS: INSULIN LISPRO 100 UNIT/1 ML 3ML VIAL SQ SCH ×4 (08:57→21:30)
[2019-05-08] MEDS: NITROFURANTOIN MACROCRYSTALS 100 MG CAP PO SCH ×2 (08:57→20:04)
[2019-05-08] MEDS: POTASSIUM CHLORIDE 10MEQ EA PO SCH ×2 (08:58→16:50)
[2019-05-08] MEDS: DIGOXIN 0.125 MG TAB PO SCH (08:58)
[2019-05-08] MEDS: CARVEDILOL 3.125 MG TAB PO SCH ×2 (08:58→15:55)
[2019-05-08] MEDS: ASPIRIN 81 MG CHEW TAB PEG SCH (08:58)
[2019-05-08] MEDS: FUROSEMIDE INJ 10 MG/ML 4 ML VIAL IV SCH (08:58)
[2019-05-08] MEDS: COLLAGENASE 5 GM TUBE TOP SCH (09:00)
[2019-05-08] MEDS: MEXILETINE HCL 150 MG PO SCH ×2 (09:00→15:56)
[2019-05-08] MEDS ORDERED: POTASSIUM CHLORIDE 10MEQ EA PO ONE (09:45)
--- NOTE | 2019-05-08 10:47 | Progress Note ---
DATE: 05/08/2019 SUBJECTIVE: Ms. Jose is a 73-year-old female with history of CVA, diabetes, hypertension, hyperlipidemia, ischemic cardiomyopathy, CAD, systolic CHF with ejection fraction of 20%, paroxysmal atrial fibrillation, peripheral vascular disease, wheelchair-bound, oxygen-dependent, came to the emergency room complaining of shortness of breath. She was found to have a large pleural effusion. We are awaiting for thoracentesis. She is on IV Lasix. PHYSICAL EXAMINATION: GENERAL: Today, she is awake and alert. She is feeling better. VITAL SIGNS: Temperature is 96.6, blood pressure is 100/58. HEART: Regularly irregular. LUNGS: Decreased breath sounds bilaterally. ABDOMEN: Soft. LABORATORY DATA: On the blood work, white count 7.16, hemoglobin 11.8, hematocrit 37, potassium today is 3.0. We are going to replace that. Creatinine is 1.29. Glucose is 148. Urine culture positive for E coli. Blood cultures negative. ASSESSMENT: 1. Acute on chronic systolic congestive heart failure with ejection fraction of 20%. 2. Diabetes type 2 with hypoglycemia. 3. Status post fall. 4. Urinary tract infection with Escherichia coli. 5. Hypertension. 6. Hyperlipidemia. 7. Coronary artery disease, status post coronary artery bypass graft. 8. Peripheral vascular disease. 9. Large pleural effusion. PLAN: Plan at the present time is to continue IV Lasix. Replace potassium. Hold anticoagulation for thoracentesis today. All this was discussed with the patient. All questions were answered to satisfaction. MD AVTAR Ramos/YOVANNYL /[id number]
--- NOTE | 2019-05-08 13:50 | Diagnostic Imaging Report ---
Ultrasound guided thoracentesis History: Left pleural effusion Technique: Written informed consent was obtained after discussing risks, benefits, and alternatives of the procedure with the patient. Patient was brought to the ultrasound suite and placed on the table in upright position. Pre-procedural ultrasound demonstrates a left pleural effusion. Suitable percutaneous access site was chosen in the posterior left chest. Overlying skin was prepared and draped in the usual sterile fashion. Planned needle tract was anesthetized with dilute Lidocaine for local anesthesia. Using sonographic guidance, an 5 Yi Yueh needle was advanced into the left pleural effusion. Warehouse Laborer images saved in the patient's medical record. Needle was removed, and catheter was advanced. Subsequently, 850 cc of clear yellow fluid was evacuated. Catheter was removed. Hemostasis achieved at puncture site by direct compression. The patient tolerated the procedure well. There were no complications. Post procedure chest radiograph was ordered. Impression: Technically successful sonographic guided left thoracentesis with evacuation of 850 cc of fluid. Signed by: Dr. Dru Vigil MD on 05/08/2019 1:47 PM
--- NOTE | 2019-05-08 13:53 | Diagnostic Imaging Report ---
EXAM: CHEST SINGLE (NOT PORTABLE) DATE: 05/08/2019 1:30 PM INDICATION: Status post thoracentesis COMPARISON: 05/05/2019 FINDINGS: Right-sided PICC line and left-sided AICD identified in stable position. Median sternotomy wires again noted. There has been evacuation of left-sided pleural fluid with no significant residual fluid remaining. There is no evidence for pneumothorax status post thoracentesis. Mildly increased interstitial opacities noted bilaterally which can be seen in the setting of interstitial edema. Linear opacity noted within the right midlung zone suggestive of atelectasis. There is no evidence for new large focal consolidation. The cardiac silhouette appears mildly prominent, similar to the prior examination. No acute osseous abnormality is identified. IMPRESSION: No evidence for pneumothorax status post thoracentesis. Signed by: Dr. Dru Vigil MD on 05/08/2019 1:49 PM
--- NOTE | 2019-05-08 13:53 | NUR ---
Patient arrived back to the floor s/p thoracentesis VSS. Patient is alert and oriented x3 , she has no complaints and denies needing anything at this time, call light in reach, bed alarm on.
[2019-05-08] MEDS ORDERED: ALBUMIN 25% 25GM 100ML 0.25 GM/ML BTL IV ONE (15:30)
--- NOTE | 2019-05-08 15:30 | NUR ---
Radiology nurse reported 850 ml removed thoracentesis
[2019-05-08] MEDS ORDERED: ALBUMIN 25% 25GM 100ML 100 ML IV ONE (16:00)
[2019-05-08] MEDS ORDERED: CEFTRIAXONE SOD 1 GM/NS 50 ML 50 ML IV SCH (17:00)
[2019-05-08 17:31] LABS: BODY FLUID APPEARANCE SL.CLOUDY; BODY FLUID COLOR YELLOW; BODY FLUID TYPE PLEURAL; RBC,BODY FLUID 57 cells/uL; WBC,BODY FLUID 32 cells/uL
[2019-05-08 18:14] LABS: LYMPHOCYTES,BODY FLUID 64 %; MONO/MACROPHG,BODY FLUID 13 %; NEUTROPHILS,BODY FLUID 18 %
[2019-05-08 18:15] LABS: OTHER CELLS,BODY FLUID 5 %
--- NOTE | 2019-05-08 19:00 | NUR ---
Patient visited in room during nursing rounds. Patient alert and oriented x2-3. Pt appear very weak at this time and is being turned Q2hr. S/P Left thoracentesis (band aid on left upper back). Pt incontinent on bowel and bladder and is diapered and purewick being used. Unstageable wounds on both heels with heel protectors and heel protectors in place. Stage 1 sacrum with Calazyme cream applied periodically. Call ly within reach. Will monitor pt closely. Bed alarm active.
[2019-05-08] MEDS: ATORVASTATIN 40 MG TAB PO SCH (20:04)
[2019-05-09] VITALS: BP 101/70
[2019-05-09 04:00] VITALS: BP 101/59
--- NOTE | 2019-05-09 05:20 | NUR ---
Dressing change done on PICC line (on right upper arm). Pt tolerated it well.
[2019-05-09] MEDS: LEVOTHYROXINE SODIUM 25 MCG TABLET PO SCH (06:00)
[2019-05-09] MEDS: OCTREOTIDE ACETATE 0.05 MG/ML AMP SQ SCH ×2 (06:00→12:00)
[2019-05-09 08:00] VITALS: BP 111/65
[2019-05-09] MEDS: CARVEDILOL 3.125 MG TAB PO SCH (08:11)
[2019-05-09] MEDS: ASPIRIN 81 MG CHEW TAB PEG SCH (08:12)
[2019-05-09] MEDS: NITROFURANTOIN MACROCRYSTALS 100 MG CAP PO SCH (08:13)
[2019-05-09] MEDS: DIGOXIN 0.125 MG TAB PO SCH (08:13)
[2019-05-09] MEDS: POTASSIUM CHLORIDE 10MEQ EA PO SCH (08:13)
[2019-05-09] MEDS: COLLAGENASE 5 GM TUBE TOP SCH (08:13)
[2019-05-09 08:25] VITALS: BP 111/65
[2019-05-09] MEDS: INSULIN LISPRO 100 UNIT/1 ML 3ML VIAL SQ SCH ×2 (08:26→12:04)
[2019-05-09] MEDS: MEXILETINE HCL 150 MG PO SCH (09:00)
[2019-05-09] MEDS ORDERED: METOPROLOL TARTRATE 25 MG TAB PO SCH (09:15)
--- NOTE | 2019-05-09 09:26 | Discharge Summary ---
HOSPITAL COURSE: Ms. Jose is a 73-year-old female, who has history of diabetes, hypertension, hyperlipidemia, ischemic cardiomyopathy, coronary artery disease, systolic CHF with ejection fraction of 20%, paroxysmal atrial fibrillation, peripheral vascular disease, oxygen dependent, wheelchair bound, came to the emergency room complaining of shortness of breath. She was started on IV Lasix. She was found to have a large pleural effusion. She underwent thoracentesis yesterday. At the present time, today, she is doing better. She can breathe better. Plan is to discharge her home if it is okay with the consultants. PHYSICAL EXAMINATION: GENERAL: She is awake and alert. VITAL SIGNS: Temperature is 96.7 and blood pressure 111/65. HEART: Regular rate. LUNGS: Poor inspiratory effort. ABDOMEN: Soft. LABORATORY DATA: On the blood work, glucose is 155. Hemoglobin 11.8 and hematocrit 37. Chest x-ray done yesterday shows no evidence of pneumothorax, status post thoracentesis. DISCHARGE DIAGNOSES: 1. Acute on chronic systolic congestive heart failure with ejection fraction of 20%. 2. Diabetes type 2 with hypoglycemia, improved. 3. Status post fall. 4. Urinary tract infection with Escherichia coli. 5. Hypertension. 6. Hyperlipidemia. 7. Coronary artery disease, status post coronary artery bypass graft. 8. Peripheral vascular disease. 9. Large pleural effusion, status post thoracentesis. PLAN: At the present time is to discharge the patient home if it is okay with consultants and have her follow up as an outpatient. Continue anticoagulation. Continue p.o. antibiotics. Continue all other home medications. She needs to follow up with me in 1 week. She is to call me or come back to the emergency room if any recurrent problem. Please see home medication reconciliation list. MD AVTAR Ramos/THERON /[id number]
[2019-05-09] MEDS ORDERED: FUROSEMIDE 40 MG TAB PO SCH (09:30)
[2019-05-09 12:00] VITALS: BP 116/67
--- NOTE | 2019-05-09 14:02 | NUR ---
IMM letter delivered and explained to pt. She verbalized understanding. Signed copy placed in chart. Copy to pt. Pt's daughter Maki will provide transportation for discharge home. Will bring pt's home oxygen for ride home. Pt has provider services with [facility].
--- NOTE | 2019-05-09 15:46 | NUR ---
KRISTIN was informed that pt is on service with [facility]. KRISTIN called and spoke with Rosalinda at [facility] who verified that pt is currently on service with them. Informed her that we are anticipating dc today if cleared by consultants. KRISTIN spoke to pt at bedside. States she would like to resume service with [facility]. Choice letter signed and placed in chart. Copy to pt's bedside. Resumption order and clinicals faxed to [facility]. P [phone] F [phone]
--- NOTE | 2019-05-09 15:50 | NUR ---
Notified Dr. Lennon that cardiology and pulmonary have cleared patient for dc home. Dr. Lennon to call in prescriptions to pharmacy and have patient follow up in the office next week.
[2019-05-09] MEDS ORDERED: FUROSEMIDE40 MG PO (15:56)
[2019-05-09] MEDS ORDERED: METOPROLOL TART25 MG PO (15:57)
[2019-05-09 16:00] VITALS: BP 107/67
[2019-05-09] MEDS ORDERED: MACROBID 100 M100 MG PO (16:01)
--- NOTE | 2019-05-09 16:12 | NUR ---
Called and informed Gloria with [facility] that pt is discharging today. Stated they will make every effort to see pt tomorrow.
--- NOTE | 2019-05-09 16:30 | NUR ---
PICC line was removed with tip intact from RUE, dressing applied.
== END 2019-05-09 17:15 | disposition home or self-care (01) | DRG 291 ==
LOC: ER 07:54 → ERHOLD 10:49 → OBSVTOIN 11:45 → MED/SURG2 13:36
PROVIDERS: ADMIT Internal Medicine; ATTEND Internal Medicine
PROC: 02HV33Z Insertion of Infusion Device into Superior Vena Cava, Percutaneous Approach (ICD-10-PCS; principal; 2019-05-05)
PROC: B548ZZA Ultrasonography of Superior Vena Cava, Guidance (ICD-10-PCS; 2019-05-05)
PROC: 0W9B30Z Drainage of Left Pleural Cavity with Drainage Device, Percutaneous Approach (ICD-10-PCS; 2019-05-08)
DX: I13.0 Hypertensive heart and chronic kidney disease with heart failure and stage 1 through stage 4 chronic kidney disease, or unspecified chronic kidney disease (principal); I50.23 Acute on chronic systolic (congestive) heart failure; N39.0 Urinary tract infection, site not specified; E16.0 Drug-induced hypoglycemia without coma; N18.3 Chronic kidney disease, stage 3 (moderate); W01.190A Fall on same level from slipping, tripping and stumbling with subsequent striking against furniture, initial encounter; Y93.89 Activity, other specified; Y92.019 Unspecified place in single-family (private) house as the place of occurrence of the external cause; E11.649 Type 2 diabetes mellitus with hypoglycemia without coma; Z79.84 Long term (current) use of oral hypoglycemic drugs; I25.10 Atherosclerotic heart disease of native coronary artery without angina pectoris; I25.2 Old myocardial infarction; Z86.73 Personal history of transient ischemic attack (TIA), and cerebral infarction without residual deficits; Z95.810 Presence of automatic (implantable) cardiac defibrillator; Z88.6 Allergy status to analgesic agent; Z88.1 Allergy status to other antibiotic agents; Z88.5 Allergy status to narcotic agent; Z88.2 Allergy status to sulfonamides; Z88.8 Allergy status to other drugs, medicaments and biological substances; Z79.01 Long term (current) use of anticoagulants; Z95.1 Presence of aortocoronary bypass graft; E78.5 Hyperlipidemia, unspecified; E03.9 Hypothyroidism, unspecified; E11.51 Type 2 diabetes mellitus with diabetic peripheral angiopathy without gangrene; I48.0 Paroxysmal atrial fibrillation; B96.20 Unspecified Escherichia coli [E. coli] as the cause of diseases classified elsewhere
CPT/HCPCS: 32555; 36415; 36569; 70450; 71045; 71250; 72125; 74470; 80048; 80053; 80061; 80162; 81001; 82550; 82553; 82948; 83615; 83735; 83880; 83986; 84157; 84443; 84484; 85025; 85610; 85730; 87040; 87070; 87071; 87086; 87186; 87205; 88305; 89051; 93005; 93306; 96372; 99251; 99285; C1729; J1940; J2354; P9047